=== PATIENT | female | born 2005 | race Two or more races ===

== ENCOUNTER 2024-11-29 19:45 | Emergency (ER) | payer OTHER ==
[~2024-11-29] VITALS: Ht 167.6 cm; Wt 56.7 kg
[2024-11-29 20:48] LABS: HEMATOCRIT 30.7 % (36.0-45.00); HEMOGLOBIN 10.6 g/dL (12.0-15.00); MEAN CELL VOLUME 83.9 fL (80.00-100.00); MEAN CORPUSCULAR HGB CONC 34.6 g/dl (32.0-36.0); PLATELET COUNT 296 K/uL (150-450); RED BLOOD COUNT 3.66 M/uL (4.00-6.00)
[2024-11-29 21:16] LABS: URINE APPEARANCE Cloudy; URINE BILIRRUBIN Negative (NEGATIVE); URINE BLOOD Negative; URINE COLOR Dark Yellow; URINE GLUCOSE Negative (NEGATIVE); URINE KETONE 15 (NEGATIVE); URINE LEUKOCYTE Negative; URINE NITRATE Negative; URINE PROTEIN Negative (NEGATIVE)
[2024-11-29 21:17] LABS: URINE BACTERIA 923.9 uL (0.0-1933); URINE EPITHELIAL CELLS 50.1 uL (0.0-38.8); URINE RBC 25.1 uL (0.0-20.8); URINE WBC 43.6 uL (0.0-23.2)
[2024-11-29 21:39] LABS: URINE CAST 0.58 uL (0.0-1.40)
== END 2024-11-29 22:33 ==
LOC: ER 19:48
PROVIDERS: Emergency Medicine
DX: O26.891 Other specified pregnancy related conditions, first trimester (principal); R10.2 Pelvic and perineal pain; O99.011 Anemia complicating pregnancy, first trimester; Z3A.10 10 weeks gestation of pregnancy

== ENCOUNTER 2025-01-29 11:39 | Emergency (ER) | payer OTHER ==
[~2025-01-29] VITALS: Ht 167.6 cm; Wt 61.2 kg
[2025-01-29 15:26] LABS: HEMATOCRIT 33.3 % (36.0-45.00); HEMOGLOBIN 11.3 g/dL (12.0-15.00); MEAN CORPUSCULAR HEMOGLOBIN 29.6 pg (27.00-32.0); PLATELET COUNT 296 K/uL (150-450); RED BLOOD COUNT 3.83 M/uL (4.00-6.00); RED CELL DISTRIBUTION WIDTH 14.6 % (11.5-14.5)
[2025-01-29 16:05] LABS: PH,URINE 6.5 (5.0-8.0); URINE APPEARANCE Cloudy; URINE BILIRRUBIN Negative (NEGATIVE); URINE BLOOD NHT; URINE COLOR Yellow; URINE GLUCOSE Negative (NEGATIVE); URINE KETONE Negative (NEGATIVE); URINE LEUKOCYTE Small; URINE NITRATE Negative; URINE PROTEIN Negative (NEGATIVE); URINE UROBILINOGEN 0.2 E.U./dl
[2025-01-29 16:09] LABS: URINE EPITHELIAL CELLS 21.6 uL (0.0-38.8); URINE RBC 27.2 uL (0.0-20.8); URINE WBC 142.9 uL (0.0-23.2)
[2025-01-29 16:24] LABS: URINE CAST 0.29 uL (0.0-1.40)
[2025-01-29 16:31] LABS: CALCIUM 9.4 mg/dL (8.5-10.1); CREATININE SERUM 0.46 mg/dL (0.55-1.02); GFR 173.18; POTASSIUM 3.88 mEq/L (3.5-5.1)
[2025-01-29] MEDS ORDERED: AMOX1TAB5 PO (17:15)
[2025-01-29] MEDS ORDERED: PROTONIX40 MG PO (17:15)
== END 2025-01-29 17:25 | disposition home or self-care (01) ==
LOC: ER 11:39
PROVIDERS: General Practice
DX: O20.9 Hemorrhage in early pregnancy, unspecified (principal); Z3A.19 19 weeks gestation of pregnancy; Z88.8 Allergy status to other drugs, medicaments and biological substances; Z91.011 Allergy to milk products

== ENCOUNTER 2025-02-17 12:54 | Emergency (ER) | payer OTHER ==
[~2025-02-17] VITALS: Ht 167.6 cm; Wt 68.0 kg
[~2025-02-17 12:54] MED LIST: AMOX1TAB5 PO; PROTONIX40 MG PO
[2025-02-17] MEDS ORDERED: ACETAMINOPHEN 500 MG GEL..CAP PO STA (14:03)
[2025-02-17] MEDS ORDERED: ACETAMINOPHEN 500 MG GEL..CAP PO ONE (14:08)
[2025-02-17 14:39] LABS: HEMOGLOBIN 10.7 g/dL (12.0-15.00); MEAN CELL VOLUME 88.1 fL (80.00-100.00); MEAN CORPUSCULAR HEMOGLOBIN 30.4 pg (27.00-32.0); MEAN CORPUSCULAR HGB CONC 34.5 g/dl (32.0-36.0); PLATELET COUNT 290 K/uL (150-450); RED BLOOD COUNT 3.52 M/uL (4.00-6.00); RED CELL DISTRIBUTION WIDTH 13.7 % (11.5-14.5)
[2025-02-17 15:02] LABS: CALCIUM 8.8 mg/dL (8.5-10.1); CREATININE SERUM 0.47 mg/dL (0.55-1.02); GFR 168.94; POTASSIUM 3.81 mEq/L (3.5-5.1)
[2025-02-17 15:30] LABS: PH,URINE 7.5 (5.0-8.0); URINE APPEARANCE Cloudy; URINE BILIRRUBIN Negative (NEGATIVE); URINE BLOOD Negative; URINE COLOR Yellow; URINE GLUCOSE Negative (NEGATIVE); URINE KETONE Negative (NEGATIVE); URINE LEUKOCYTE Small; URINE NITRATE Negative; URINE PROTEIN Negative (NEGATIVE); URINE UROBILINOGEN 0.2 E.U./dl
[2025-02-17 15:34] LABS: URINE BACTERIA 3292.4 uL (0.0-1933); URINE EPITHELIAL CELLS 43.5 uL (0.0-38.8); URINE WBC 126.4 uL (0.0-23.2)
[2025-02-17 15:54] LABS: URINE CAST 0.58 uL (0.0-1.40); URINE MUCUS SCANT
== END 2025-02-17 17:27 | disposition home or self-care (01) ==
LOC: ER 12:54
PROVIDERS: General Practice
DX: Z34.90 Encounter for supervision of normal pregnancy, unspecified, unspecified trimester (principal); Z3A.21 21 weeks gestation of pregnancy; R10.2 Pelvic and perineal pain; R51.9 Headache, unspecified; Z88.8 Allergy status to other drugs, medicaments and biological substances; Z91.011 Allergy to milk products

== ENCOUNTER 2025-04-11 16:42 | Outpatient (CLI) | payer OTHER ==
[~2025-04-11] VITALS: Ht 167.6 cm; Wt 74.8 kg
[2025-04-11 15:52] VITALS: BP 119/74
[~2025-04-11 16:42] MED LIST changes: -CEFUROXIME500 MG PO; -FERROUS SULFAT325 MG PO; -PRENATA CHEWAB1 EACH PO
[2025-04-11] MEDS ORDERED: RINGERS SOLUTION,LACTATED 1,000 ML IV SCH (17:00)
[2025-04-11] MEDS ORDERED: PRENATA CHEWAB1 EACH PO (17:00)
[2025-04-11 17:13] LABS: BASO % 0.2 % (0.1-1.2); EOS # 0.08 (0.04-0.54); EOS % 0.7 % (0.7-7.0); LYMPH # 1.72 (1.18-3.74); LYMPH % 15.8 % (19.3-53.1); MEAN CORPUSCULAR HEMOGLOBIN 29.8 pg (25.6-32.2); MONO # 0.68 (0.24-0.82); MONO % 6.2 % (4.7-12.5); NEUT # 8.31 (1.56-6.13); NEUT % 76.1 % (34.0-71.1); PLATELET COUNT 314 K/uL (163-369); RED BLOOD COUNT 3.02 M/uL (3.93-5.22); RED CELL DISTRIBUTION WIDTH 11.9 % (11.6-14.4)
[2025-04-11 17:14] LABS: HEMATOCRIT 26.4 % (34.1-44.9)
[2025-04-11 17:16] LABS: PH,URINE 6.5 (5.0-8.0); URINE APPEARANCE Cloudy; URINE BILIRRUBIN Negative (NEGATIVE); URINE BLOOD Large; URINE COLOR Orange; URINE GLUCOSE Negative (NEGATIVE); URINE KETONE Negative (NEGATIVE); URINE LEUKOCYTE Small; URINE NITRATE Negative; URINE PROTEIN 30 (NEGATIVE)
[2025-04-11 17:19] LABS: URINE BACTERIA 1265.5 uL (0.0-1933); URINE EPITHELIAL CELLS 22.1 uL (0.0-38.8); URINE WBC 63.4 uL (0.0-23.2)
[2025-04-11 17:40] LABS: TYPE CELLS SQUAMOUS; URINE CAST 0.58 uL (0.0-1.40)
[2025-04-11 20:13] VITALS: BP 101/64
[2025-04-11] MEDS ORDERED: CEFAZOLIN SODIUM 1,000 MG VIAL IV SCH (21:00)
[2025-04-11 23:20] VITALS: BP 106/71
[2025-04-12 04:25] VITALS: BP 103/63
[2025-04-12 06:05] VITALS: BP 105/61; O2SAT 99
[2025-04-12] MEDS ORDERED: FERROUS SULFAT325 MG PO (07:54)
[2025-04-12] MEDS ORDERED: CEFUROXIME500 MG PO (07:54)
[2025-04-12 09:24] VITALS: BP 105/61
== END 2025-04-12 09:25 | disposition home or self-care (01) ==
LOC: OBS/DEL 16:42
PROVIDERS: Obstetrics & Gynecology; ATTEND Specialist
DX: O23.43 Unspecified infection of urinary tract in pregnancy, third trimester (principal); N39.0 Urinary tract infection, site not specified; Z3A.29 29 weeks gestation of pregnancy

== ENCOUNTER → 2025-04-11 | Emergency (ER) | payer OTHER ==
[~2025-04-11] MED LIST changes: +CEFUROXIME500 MG PO; +FERROUS SULFAT325 MG PO; +PRENATA CHEWAB1 EACH PO
== END | disposition left against medical advice (07) ==
LOC: ER 15:29
DX: Z53.21 Procedure and treatment not carried out due to patient leaving prior to being seen by health care provider (principal)

== ENCOUNTER 2025-04-13 20:22 | Outpatient (CLI) | payer OTHER ==
[~2025-04-13] VITALS: Ht 167.6 cm; Wt 74.8 kg
[2025-04-13 19:22] VITALS: BP 107/69; O2SAT 99
[2025-04-13] MEDS ORDERED: KETOROLAC TROMETHAMINE 60 MG VIAL IM STA (20:28)
[2025-04-13] MEDS ORDERED: CEFAZOLIN SODIUM 1,000 MG VIAL IV SCH (20:30)
[2025-04-13 20:50] LABS: BASO % 0.2 % (0.1-1.2); EOS # 0.06 (0.04-0.54); EOS % 0.5 % (0.7-7.0); LYMPH # 1.81 (1.18-3.74); LYMPH % 15.1 % (19.3-53.1); MEAN PLATELET VOLUME 10.00 fl (9.4-12.4); MONO # 0.97 (0.24-0.82); MONO % 8.1 % (4.7-12.5); NEUT # 9.02 (1.56-6.13); NEUT % 75.3 % (34.0-71.1); RED CELL DISTRIBUTION WIDTH 11.9 % (11.6-14.4)
[2025-04-13 20:51] LABS: URINE APPEARANCE Cloudy; URINE BACTERIA 2677.1 uL (0.0-1933); URINE BILIRRUBIN Negative (NEGATIVE); URINE BLOOD Large; URINE COLOR Yellow; URINE EPITHELIAL CELLS 54.6 uL (0.0-38.8); URINE GLUCOSE Negative (NEGATIVE); URINE LEUKOCYTE Moderate; URINE NITRATE Negative; URINE PROTEIN Trace (NEGATIVE); URINE RBC 489.1 uL (0.0-20.8); URINE UROBILINOGEN 1.0 E.U./dl; URINE WBC 105.9 uL (0.0-23.2)
[2025-04-13] MEDS ORDERED: RINGERS SOLUTION,LACTATED 1,000 ML IV SCH (21:00)
[2025-04-13 21:20] LABS: TYPE CELLS SQUAMOUS; URINE CAST 0.43 uL (0.0-1.40); URINE KETONE 40 (NEGATIVE); URINE MUCUS SCANT
[2025-04-13 21:30] LABS: ALT/SGPT 13.0 U/L (12-78); AST/SGOT 13.0 U/L (15-37); BILIRUBIN TOTAL 0.21 mg/dL (0.3-1.2); BUN CREA RATIO 14.0 (7.0-25.0); CREATININE SERUM 0.74 mg/dL (0.55-1.02); GFR 100.05; GLOBULINA 3.6 G/DL (2.4-3.5); GLUCOSE FASTING 75.0 mg/dL (65-100); OSMOLALITY SERUM 283.0 MOSM/KG (275-295)
[2025-04-14] VITALS: BP 103/63
[2025-04-14 04:00] VITALS: BP 100/60
[2025-04-14 06:29] VITALS: BP 97/57; O2SAT 98
[2025-04-14 09:46] VITALS: BP 97/57
== END 2025-04-14 11:27 | disposition home or self-care (01) ==
LOC: OBS/DEL 20:22
PROVIDERS: ATTEND Specialist
DX: O26.893 Other specified pregnancy related conditions, third trimester (principal); Z3A.30 30 weeks gestation of pregnancy

== ENCOUNTER → 2025-04-13 | Emergency (ER) | payer OTHER ==
[~2025-04-13] MED LIST changes: +CEFUROXIME500 MG PO; +FERROUS SULFAT325 MG PO; +PRENATA CHEWAB1 EACH PO
== END | disposition left against medical advice (07) ==
LOC: ER 18:47
DX: Z53.21 Procedure and treatment not carried out due to patient leaving prior to being seen by health care provider (principal)

== ENCOUNTER 2025-06-10 05:06 | Inpatient (IN) | payer OTHER ==
[2025-06-10] VITALS (12 sets, daily range): BP systolic 120–152; BP diastolic 74–103; O2SAT 98
[~2025-06-10] VITALS: Ht 167.6 cm; Wt 87.1 kg
[2025-06-10] MEDS ORDERED: RINGERS SOLUTION,LACTATED 1,000 ML IV SCH (06:15)
[2025-06-10] MEDS ORDERED: OXYTOCIN 500 ML IV SCH (06:15)
[2025-06-10 06:39] LABS: URINE APPEARANCE Clear; URINE BILIRRUBIN Negative (NEGATIVE); URINE BLOOD Moderate; URINE COLOR Yellow; URINE GLUCOSE Negative (NEGATIVE); URINE KETONE Negative (NEGATIVE); URINE LEUKOCYTE Trace; URINE NITRATE Negative; URINE PROTEIN Trace (NEGATIVE); URINE UROBILINOGEN 0.2 E.U./dl
[2025-06-10 06:41] LABS: URINE BACTERIA 551.8 uL (0.0-1933); URINE EPITHELIAL CELLS 52.1 uL (0.0-38.8); URINE RBC 81.0 uL (0.0-20.8); URINE WBC 29.2 uL (0.0-23.2)
[2025-06-10 06:42] LABS: URINE CAST 0.14 uL (0.0-1.40)
[2025-06-10 06:51] LABS: BASO % 0.3 % (0.1-1.2); EOS # 0.06 (0.04-0.54); EOS % 0.6 % (0.7-7.0); LYMPH # 1.90 (1.18-3.74); LYMPH % 18.5 % (19.3-53.1); MEAN PLATELET VOLUME 11.70 fl (9.4-12.4); MONO # 0.52 (0.24-0.82); MONO % 5.1 % (4.7-12.5); NEUT # 7.69 (1.56-6.13); NEUT % 74.7 % (34.0-71.1); RED CELL DISTRIBUTION WIDTH 12.6 % (11.6-14.4)
[2025-06-10 07:21] LABS: INR < 0.93
[2025-06-10 07:33] LABS: ALT/SGPT 11.0 U/L (12-78); AST/SGOT 14.0 U/L (15-37); BILIRUBIN TOTAL 0.26 mg/dL (0.3-1.2); BUN CREA RATIO 13.0 (7.0-25.0); CREATININE SERUM 0.7 mg/dL (0.55-1.02); GFR 106.68; GLOBULINA 3.8 G/DL (2.4-3.5); GLUCOSE FASTING 132.0 mg/dL (65-100); OSMOLALITY SERUM 280.0 MOSM/KG (275-295)
[2025-06-10] MEDS ORDERED: MORPHINE SULFATE 4 MG/ML CARTRIDGE IV STA (07:46)
[2025-06-10] MEDS ORDERED: ERYTHROMYCIN BASE OPHT 1GM EACH TUBE OP ONE ×2 (09:37→12:00)
[2025-06-10] MEDS ORDERED: LIDOCAINE HCL 1% 10ML VIAL ONE (09:38)
[2025-06-10] MEDS ORDERED: CHLORHEXIDINE GLUCONATE 120 ML BOTTLE TOP ONE ×2 (09:38→12:00)
[2025-06-10] MEDS ORDERED: OXYTOCIN 20 UNITS/1000ML RL PIGGYBAG IV ONE (09:38)
[2025-06-10] MEDS ORDERED: OXYTOCIN 1,000 ML IV SCH (12:00)
[2025-06-10] MEDS ORDERED: ACETAMINOPHEN 500 MG GEL..CAP PO PRN (12:00)
[2025-06-10] MEDS ORDERED: LIDOCAINE HCL 1% 10ML VIAL IJ ONE (12:30)
[2025-06-10] MEDS ORDERED: BENZOCAINE/MENTHOL 90 ML BOTTLE TOP SCH (13:00)
[2025-06-10] MEDS ORDERED: HYDROCORTISONE 2.5% 30 GM TUBE RECTAL SCH (13:00)
[2025-06-10] MEDS ORDERED: LABETALOL HCL 200 MG TABLET PO SCH (20:28)
[2025-06-10] MEDS ORDERED: MAGNESIUM SULFATE IN WATER 4 GM/100 ML PIGGYBACK IV ONE (20:30)
[2025-06-10] MEDS ORDERED: MAGNESIUM SULFATE IN WATER 100 ML IV SCH (20:30)
[2025-06-10] MEDS ORDERED: MAGNESIUM SULFATE IN WATER 0.04 GM/ML IV.SOLN IV SCH (20:30)
[2025-06-10] MEDS ORDERED: LABETALOL HCL 100 MG TABLET PO ONE (20:30)
[2025-06-10 21:28] LABS: BASO % 0.2 % (0.1-1.2); EOS # 0.01 (0.04-0.54); EOS % 0.1 % (0.7-7.0); LYMPH # 1.79 (1.18-3.74); LYMPH % 11.7 % (19.3-53.1); MEAN PLATELET VOLUME 10.70 fl (9.4-12.4); MONO # 1.25 (0.24-0.82); MONO % 8.1 % (4.7-12.5); NEUT # 12.13 (1.56-6.13); NEUT % 79.0 % (34.0-71.1); RED CELL DISTRIBUTION WIDTH 12.8 % (11.6-14.4)
[2025-06-10 22:04] LABS: ALT/SGPT 14.0 U/L (12-78); AST/SGOT 29.0 U/L (15-37); BILIRUBIN TOTAL 0.27 mg/dL (0.3-1.2); BUN CREA RATIO 11.0 (7.0-25.0); CREATININE SERUM 0.7 mg/dL (0.55-1.02); GFR 106.68; GLOBULINA 3.8 G/DL (2.4-3.5); GLUCOSE FASTING 84.0 mg/dL (65-100); OSMOLALITY SERUM 282.0 MOSM/KG (275-295)
[2025-06-10 22:34] LABS: URINE APPEARANCE Error; URINE BILIRRUBIN Negative (NEGATIVE); URINE BLOOD Large; URINE COLOR Orange; URINE GLUCOSE Negative (NEGATIVE); URINE KETONE Negative (NEGATIVE); URINE LEUKOCYTE Small; URINE NITRATE Negative; URINE PROTEIN 30 (NEGATIVE); URINE UROBILINOGEN 0.2 E.U./dl
[2025-06-10 22:38] LABS: URINE BACTERIA 74.4 uL (0.0-1933); URINE CAST 0.43 uL (0.0-1.40); URINE EPITHELIAL CELLS 3.3 uL (0.0-38.8); URINE RBC 3871.9 uL (0.0-20.8); URINE WBC 111.9 uL (0.0-23.2)
[2025-06-11 03:00] VITALS: BP 119/76
[2025-06-11 06:39] VITALS: BP 115/75; O2SAT 99
[2025-06-11] MEDS ORDERED: FERROUS SULFATE 325 MG TABLET.EC PO ONE (07:47)
[2025-06-11] MEDS ORDERED: LABETALOL HCL 200 MG TABLET PO ONE (07:58)
[2025-06-11 08:00] VITALS: BP 112/78
[2025-06-11] MEDS ORDERED: FERROUS SULFATE 325 MG TABLET.EC PO SCH (09:00)
[2025-06-11] MEDS ORDERED: LABETALOL HCL 100 MG TABLET PO SCH (09:00)
[2025-06-11 18:57] VITALS: BP 123/86
[2025-06-12 00:10] VITALS: BP 140/80
[2025-06-12 08:00] VITALS: BP 140/85
== END 2025-06-12 16:07 | disposition home or self-care (01) | DRG 807 ==
LOC: LDR 05:06 → OB/GYN 16:27
PROVIDERS: ADMIT Specialist; ATTEND Specialist
PROC: 10E0XZZ Delivery of Products of Conception, External Approach (ICD-10-PCS; principal; 2025-06-10)
PROC: 0W8NXZZ Division of Female Perineum, External Approach (ICD-10-PCS; 2025-06-10)
PROC: 4A1HXCZ Monitoring of Products of Conception, Cardiac Rate, External Approach (ICD-10-PCS; 2025-06-10)
DX: O80 Encounter for full-term uncomplicated delivery (principal); Z37.0 Single live birth; Z3A.37 37 weeks gestation of pregnancy